=== PATIENT | female | born 1965 | race Caucasian/White ===

== ENCOUNTER 2019-07-13 22:51 | Emergency (ER) | payer OTHER ==
--- OUTSIDE RECORDS SUMMARY | 2019-07-13 23:00 | XMS REPORT | Continuity of Care Document ---
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 Inactive: 01/07/2019 Social History Type Date Description Comments Sex Unknown Tobacco Use Start: Unknown End: Patient is a former smoker Smoking Status Reviewed: 03/25/19 Patient is a former smoker Allergies, Adverse Reactions, Alerts Active Allergies Reaction Severity Comments Date Conduction Gel Disorder of skin Moderate 01/28/2019 Latex dermatitis 01/28/2019 Medications Active Medications SIG Qnty Indications Ordering Provider Date Ativan 1 daily prn 30tabs Unknown 01/07/2019 0.5mg Tablets Oral History Medications Cyclobenzaprine HCL 1-2 twice daily 20tabs Unknown 12/30/2018 - 5mg Tablets prn Oral 02/23/2019 Medications Administered in Office Medication SIG Qnty Indications Ordering Provider Date TB Intradermal Test Unknown 11/20/2014 Injection Immunizations CPT Code Status Date Vaccine Lot # [id number] Given 06/12/2010 Influenza Virus Vaccine, Quadrivalent, Split, Im Use 0.25ML [id number] Given 07/18/2009 Tdap - Boostrix/Adacel [id number] Given 07/18/2009 Tdap - Boostrix/Adacel [id number] Given 07/18/2009 Tdap - Boostrix/Adacel [id number] Refused 03/09/2018 Influenza Virus Vaccine, Quadrivalent, Split, Im Use 0.25ML [id number] Refused 03/06/2017 Influenza Virus Vaccine, Quadrivalent, Split, Im Use 0.25ML Vital Signs Date Vital Result Comment 06/28/2019 8:49am BP Systolic 124 mmHg BP Diastolic 76 mmHg Weight 272.00 lb Heart Rate 53 /min Body Temperature 96.5 F O2 % BldC Oximetry 97 % 03/25/2019 11:06am BP Systolic 128 mmHg BP Diastolic 80 mmHg Height 62.25 inches 5'2.25" Weight 257.00 lb Heart Rate 68 /min Body Temperature 96.1 F O2 % BldC Oximetry 98 % BMI (Body Mass Index) 46.6 kg/m2 Results Test Acquired Date Facility Test Result H/L Range Note [facility] Urine 03/25/2019 [facility] Urine, Microalbumin 10mg/l Microalbumin/ ( )- - Creat R Urine, Creatinine, Random 50mg/dl Microalb/CR Ratio [id number] Procedures Date Code Description Status 06/28/2019 62782 Brief Emotional/Behav Assessment W/ Scoring Doc Per Completed Standard Inst 03/25/2019 20809 Brief Emotional/Behav Assessment W/ Scoring Doc Per Completed Standard [facility] Medical Devices Description No Information Available Encounters Type Date Location Provider Dx Diagnosis Office Visit 06/28/2019 [facility] Danni Nunes DO F43.23 Adjustment disorder 8:45a with mixed anxiety and depressed mood I73.00 Raynaud's syndrome without gangrene Office Visit 03/25/2019 11:00a [facility] Danni Nunes DO Z00.00 Encntr for general adult medical exam w/o abnormal findings Z13.31 Encounter for screening for depression Z68.42 Body mass index (BMI) 45.0-49.9, adult Office Visit 02/08/2019 3:00p [facility] Danni Nunes DO F43.0 Acute stress reaction M54.5 Low back pain Z68.42 Body mass index (BMI) 45.0-49.9, adult Assessments Date Code Description Provider 06/28/2019 F43.23 Adjustment disorder with mixed anxiety and Danni Nunes DO depressed mood 06/28/2019 I73.00 Raynaud's syndrome without gangrene Danni Nunes DO 03/25/2019 Z00.00 Encounter for general adult medical Danni Karnow, DO examination without abnormal findings 03/25/2019 Z13.31 Encounter for screening for depression Danni Nunes, DO 03/25/2019 Z68.42 Body mass index (BMI) 45.0-49.9, adult Danni Nunes, DO 02/08/2019 F43.0 Acute stress reaction Danni Nunes, DO 02/08/2019 M54.5 Low back pain Danni Nunes, DO 02/08/2019 Z68.42 Body mass index (BMI) 45.0-49.9, adult Danni Nunes, Plan of Treatment Future Appointment(s):2019 9:30 am - Danni KarDO renate at [facility] Main08/2019 - Danni Nunes DOF43.23 Adjustment disorder with mixed anxiety and depressed moodComments:Lots of supportive listening Long discussion about how dealing with all the stresses Doing regular therapy Discussed other options for dealing with food issues Lots of encouragement and discussion Follow up in a few [id number] Raynaud's syndrome without gangreneComments:Discussed diagnosis and management optionsShe is doing well with gloves, warmth, etcIf wants furthermanagement or if things change or worsen, she will let me knowAllComments:>25min visit with more than 50% of the time spent counseling Functional Status Description No Information Available Mental Status Description No Information Available Referrals Description No Information Available
--- NOTE | 2019-07-13 23:22 | ED ---
Lower Extremity - HPI Summary HPI Summary: 53 year old F arriving via private car to [facility] accompanied by complains of worsening left lower extremity pain, swelling, and erythema since waking up 07/13/2019 AM. Patient states she woke up with pain, swelling, and erythema in the front of her left lower extremity. She states that her symptoms worsened throughout the day. She also reports that her varicose veins in left lower extremity were bulging out throughout the day. Hx varicose veins. She does not normally use compression stockings. The patient rates the pain 2/10 in severity. Symptoms aggravated by touch. Symptoms alleviated by nothing. Medications reviewed. Allergies noted. - History of Current Complaint Chief Complaint: EDExtremityLower Stated Complaint: POS L LEG BLOOD CLOT PER PT Time Seen by Provider: 07/13/19 23:12 Onset of Pain: Hours Onset/Duration: Still Present Severity Currently: Mild Pain Intensity: 2 Pain Scale Used: 0-10 Numeric Timing: Constant Location: Is Discrete @ - left lower extremity Aggravating Factor(s): Nothing Alleviating Factor(s): Nothing - Allergies/Home Medications Allergies/Adverse Reactions: Allergies Allergy/AdvReac Type Severity Reaction Status Date / Time latex Allergy Severe Rash Verified 07/13/19 23:51 kiwi Allergy ITCHY Verified 07/13/19 23:51 TONGUE pineapple Allergy ITCHY Verified 07/13/19 23:51 TONGUE Home Medications: Home Medications Albuterol Sulfate [Proventil Hfa] 108 mcg IN Q4H PRN 10/02/17 [History Confirmed 07/13/19] Beclomethasone 40 MCG MDI(NF) [Qvar 40 MCG MDI(NF)] 2 puff INH BID 10/02/17 [ History Confirmed 07/13/19] PMH/Surg Hx/FS Hx/Imm Hx Endocrine/Hematology History: Denies: Hx Anticoagulant Therapy Cardiovascular History: Denies: Hx Congestive Heart Failure, Hx Hypertension, Hx Pacemaker/ICD Respiratory History: Denies: Hx Asthma History: Denies: Hx Renal Disease Sensory History: Denies: Hx Hearing Aid Psychiatric History: Reports: Hx Panic Disorder, Other Psychiatric Issues/ Disorders - claustrophobia - Surgical History Surgery Procedure, Year, and Place: BREAST REDUCTION, . LAPAROSCOPY Infectious Disease History: No Infectious Disease History: Denies: Traveled Outside the [place] in Last 30 Days - Family History Known Family History: Positive: Other - NEG: Colon cancer - Social History Alcohol Use: Occasionally Substance Use Type: Reports: None Hx Tobacco Use: No Smoking Status (MU): Never Smoked Tobacco Review of Systems - ROS Summary Review of Systems Summary: Home Medications Medication Instructions Recorded Confirmed Type Albuterol Sulfate [Proventil Hfa] 108 mcg IN Q4H PRN 10/02/17 07/13/19 History Beclomethasone 40 MCG MDI(NF) 2 puff INH BID 10/02/17 07/13/19 History [Qvar 40 MCG MDI(NF)] Positive: Other - left lower extremity pain and swelling, bulging varicose veins in left lower extremity Positive: Other - left lower extremity erythema All Other Systems Reviewed And Are Negative: Yes Physical Exam - Summary Physical Exam Summary: General: Obese FEMALE. No acute distress. HEENT: Normocephalic, Atraumatic. Eyes: Conjuctiva normal, PERRL. Oropharynx: Clear, mucous membranes moist, (-) exudates. Neck: Soft, FROM, (-) lymphadenopathy, (-) thyromegaly, (-) JVD. Cardiovascular: Normal sinus rhythm, (-) murmur. Lungs: Clear to auscultation bilaterally (-) wheezes, (-) rales, (-) rhonchi. Abdomen: Soft, non-tender, non-distended, (-) organomegaly, normal bowel sounds. Back: (-) CVA tenderness Extremities: Varicose veins anterior left ingram that are not thrombosed. Mild tenderness of anterior left ingram. Positive Homans's sign. No significant deep vein tenderness. Normal strength, sensation, pulse, capillary refill in left lower extremity. Skin: Warm, dry, (-) rash. Neuro: Alert and oriented x3, moves all extremities equally. No ataxia. No gait disturbance. No sensory deficit. Normal strength, normal sensation. Psychiatric: Mood normal, affect normal. Triage Information Reviewed: Yes Vital Signs On Initial Exam: Initial Vitals Temp Pulse Resp BP Pulse Ox 98.1 F 55 18 225/77 100 07/13/19 22:52 07/13/19 22:52 07/13/19 22:52 07/13/19 22:52 07/13/19 22:52 Vital Signs Reviewed: Yes Procedures - Sedation Patient Received Moderate/Deep Sedation with Procedure: No Diagnostics - Vital Signs Vital Signs Temp Pulse Resp BP Pulse Ox 07/13/19 22:52 98.1 F 55 18 225/77 100 - Laboratory Lab Statement: Any lab studies that have been ordered have been reviewed, and results considered in the medical decision making process. - Ultrasound Venous doppler study Ultrasound Interpretation Completed By: Radiologist - No left lower extremity deep vein thrombosis. ED physician has reviewed this imaging report. Lower Extremity Course/Dx - Course Course Of Treatment: 53-year-old female presents from home with left lower leg discomfort. Patient states she woke this morning and had odd swelling in her left lower leg. She does have varicose veins. She states throughout the day the discomfort in the area increased. Worse when she stood. No significant erythema. No known trauma. No change in activities recently. No fevers or chills. No chest pain shortness of breath. No recent prolonged travel or immobility. On physical exam patient has a obvious varicose veins anteriorly. She has no obvious palpable cord or calf pain. Positive Homans. Normal pulses and capillary refill. DVT study was negative. Advised patient to elevate. Follow-up with her PCP regarding compression hose and other treatments for her varicose veins. Follow-up sooner for any worsening symptoms. - Diagnoses Provider Diagnoses: Leg pain, Varicose veins of left lower extremity Discharge ED - Sign-Out/Discharge Documenting (check all that apply): Patient Departure - Discharge Plan Condition: Stable Disposition: HOME Patient Education Materials: Leg Pain (ED) Referrals: Danni Nunes DO [Primary Care Provider] - 3 Days Additional Instructions: Please follow up with your primary care physician within 3 days. Please return to Emergency Department for any new or worsening symptoms. - Billing Disposition and Condition Condition: STABLE Disposition: Home - Attestation Statements Document Initiated by Reina: Yes Documenting Scribe: Humaira Candelario Provider For Whom Reina is Documenting (Include Credential): Tyesha Quintanilla MD Scribe Attestation: Humaira Newman, scribed for Tyesha Quintanilla MD on 07/14/19 at 0240. Scribe Documentation Reviewed: Yes Provider Attestation: The documentation as recorded by the Humaira aaron accurately reflects the service I personally performed and the decisions made by me, Tyesha Quintanilla MD Status of Scribe Document: Viewed
[2019-07-14 01:05] VITALS: BP 161/66
== END 2019-07-14 01:07 | disposition home or self-care (01) ==
LOC: ED 22:51
DX: I83.812 Varicose veins of left lower extremity with pain (principal); F41.0 Panic disorder [episodic paroxysmal anxiety]; Z91.040 Latex allergy status
CPT/HCPCS: 99282

== ENCOUNTER 2019-07-15 16:20 | Emergency (ER) | payer OTHER ==
--- NOTE | 2019-07-15 18:16 | ED ---
Lower Extremity - HPI Summary HPI Summary: Patient is a 53 y/o F presenting to [facility] with complaints of erythema, swelling and pain to the left lower leg. She notes that she was evaluated two days ago for similar Sx, US was done and no blood clots were noted. Patient states that she was discharged home but notes that Sx worsened afterwards. She also reports the appearance of a lump at the area. She called her physician; patient states that she could not get an appointment for another week and was sent back to the ED for evaluation. Fever denied. No Hx of blood clots noted. She has Hx of fibromyalgia. Home medications and allergies are reviewed. Home Medications Medication Instructions Recorded Confirmed Type Albuterol Sulfate [Proventil Hfa] 108 mcg IN Q4H PRN 10/02/17 07/13/19 History Beclomethasone 40 MCG MDI(NF) 2 puff INH BID 10/02/17 07/13/19 History [Qvar 40 MCG MDI(NF)] - History of Current Complaint Chief Complaint: EDExtremityLower Stated Complaint: L LEG PAIN PER PT Time Seen by Provider: 07/15/19 17:45 Hx Obtained From: Patient Onset of Pain: Days, Prior to Arrival Onset/Duration: Still Present Severity Initially: Mild Severity Currently: Moderate Pain Intensity: 5 Pain Scale Used: 0-10 Numeric Timing: Constant Location: Is Discrete @ - left lower leg Associated Signs And Symptoms: Positive: Swelling, Redness. Negative: Fever - Allergies/Home Medications Allergies/Adverse Reactions: Allergies Allergy/AdvReac Type Severity Reaction Status Date / Time latex Allergy Severe Rash Verified 07/15/19 16:25 kiwi Allergy ITCHY Verified 07/15/19 16:25 TONGUE pineapple Allergy ITCHY Verified 07/15/19 16:25 TONGUE Home Medications: Home Medications Albuterol Sulfate [Proventil Hfa] 108 mcg IN Q4H PRN 10/02/17 [History Confirmed 07/13/19] Beclomethasone 40 MCG MDI(NF) [Qvar 40 MCG MDI(NF)] 2 puff INH BID 10/02/17 [ History Confirmed 07/13/19] Cephalexin CAP* [Keflex CAP*] 500 mg PO QID 7 Days #28 cap 07/15/19 [Rx] PMH/Surg Hx/FS Hx/Imm Hx Endocrine/Hematology History: Denies: Hx Anticoagulant Therapy, Hx Diabetes Cardiovascular History: Denies: Hx Congestive Heart Failure, Hx Hypertension, Hx Pacemaker/ICD Respiratory History: Denies: Hx Asthma History: Denies: Hx Renal Disease Sensory History: Denies: Hx Hearing Aid Psychiatric History: Reports: Hx Panic Disorder, Other Psychiatric Issues/ Disorders - claustrophobia - Surgical History Surgery Procedure, Year, and Place: BREAST REDUCTION, . LAPAROSCOPY Infectious Disease History: No Infectious Disease History: Denies: Traveled Outside the [place] in Last 30 Days - Family History Known Family History: Positive: Other - NEG: Colon cancer - Social History Alcohol Use: Occasionally Substance Use Type: Reports: None Hx Tobacco Use: No Smoking Status (MU): Never Smoked Tobacco Review of Systems Negative: Fever Positive: Myalgia - left lower leg , Edema - left lower leg Skin: Other - erythema of left lower leg All Other Systems Reviewed And Are Negative: Yes Physical Exam - Summary Physical Exam Summary: General: Well appearing, no distress Cardiovascular: Skin is well perfused Pulmonary: No respiratory distress, no tachypnea Abdomen: Non-distended Skin: Warm, well perfused. L ingram 4x5 cm area erythema MSK: left anterior distal ingram w tenderness, no tenderness of the ankle or knee. 2+ DP pulses. Trace edema of anterior ingram Psych: Normal affect Neuro: A&Ox3 Triage Information Reviewed: Yes Vital Signs On Initial Exam: Initial Vitals Temp Pulse Resp BP Pulse Ox 98.1 F 51 18 194/65 99 07/15/19 16:21 07/15/19 16:21 07/15/19 16:21 07/15/19 16:21 07/15/19 16:21 Vital Signs Reviewed: Yes Procedures - Sedation Patient Received Moderate/Deep Sedation with Procedure: No Diagnostics - Vital Signs Vital Signs Temp Pulse Resp BP Pulse Ox 07/15/19 16:21 98.1 F 51 18 194/65 99 - Laboratory Lab Statement: Any lab studies that have been ordered have been reviewed, and results considered in the medical decision making process. - Radiology LLE X-RAY Radiology Interpretation Completed By: ED Physician Summary of Radiographic Findings: NO FRACTURE OR DISLOCATION, PENDING OFFICIAL REPORT. Re-Evaluation - Re-Evaluation First Eval Re-Evaluation Time: 07:05 Change: Improved - updated patient on XR, given keflex here will get rx at pharmacy. Has pcp apt Wed Lower Extremity Course/Dx - Course Course Of Treatment: 53 y/o F p/w R ingram pain erythema. Recent negative DVT study. Likely consistent with cellulitis. Given Keflex. X-ray does not show any obvious fractures, no trauma. - Diagnoses Provider Diagnoses: Cellulitis of left lower leg Discharge ED - Sign-Out/Discharge Documenting (check all that apply): Patient Departure - discharge - Discharge Plan Condition: Stable Disposition: HOME Prescriptions: Cephalexin CAP* [Keflex CAP*] 500 mg PO QID 7 Days #28 cap Patient Education Materials: Cellulitis (ED) Referrals: Danni Nunes DO [Primary Care Provider] - 3 Days Additional Instructions: You were seen in the emergency department for leg pain. Your x-ray didn't show any obvious fractures, however if radiology reads it differently they will call you in the morning. Please take Keflex 4 times a day. Please return for worsening pain, swelling, redness to the area. Please follow up with your primary care doctor in next 2-3 days. It was a pleasure taking care of you today. - Billing Disposition and Condition Condition: STABLE Disposition: Home - Attestation Statements Document Initiated by Scribe: Yes Documenting Scribe: CINDY CAVAZOS Provider For Whom Reina is Documenting (Include Credential): JOSE VELIZ MD Scribe Attestation: I, CINDY CAVAZOS, scribed for JOSE VELIZ MD on 07/15/19 at 1918. Scribe Documentation Reviewed: Yes Provider Attestation: The documentation as recorded by the CINDY aaron accurately reflects the service I personally performed and the decisions made by me, JOSE VELIZ MD Status of Scribe Document: Viewed
[2019-07-15] MEDS ORDERED: Cephalexin CAP* 500 MG PO ONE (18:17)
[2019-07-15 19:12] VITALS: BP 168/82
== END 2019-07-15 19:11 | disposition home or self-care (01) ==
LOC: ED 16:20
DX: L03.116 Cellulitis of left lower limb (principal); F41.0 Panic disorder [episodic paroxysmal anxiety]; Z91.040 Latex allergy status
CPT/HCPCS: 99282; A9270-GY